=== PATIENT | male | born 1990 | race Caucasian/White ===

== ENCOUNTER 2021-04-05 12:55 | Emergency (ER) | payer OTHER ==
[2021-04-05 15:06] LABS: BASOPHIL 0.4 % (0-2); EOSINOPHIL 0.3 & (0-5); HCT 39.3 % (42.0-52.0); HGB 13.5 g/dl (13.2-18.0); LYMPHOCYTE 16.9 % (15-48); MCH 28.5 pg (25.0-31.0); MCHC 34.4 g/dL (32.0-36.0); MCV 82.9 fL (78.0-100.0); MONOCYTE 6.1 % (0-12); MPV 9.3 fL (6.0-9.5); NEUTROPHIL 76.2 % (41-80); PLT 256 K/uL (150-400); RBC 4.74 M/uL (4.70-6.00); RDW 11.5 % (11.5-14.0); WBC 6.74 K/uL (4.0-10.5)
[2021-04-05 15:27] LABS: ALBUMIN 3.7 g/dL (3.4-5.0); BILIRUBIN - TOTAL 0.4 mg/dL (0.2-1.0); CREATININE 0.87 mg/dL (0.67-1.17); GLOBULIN (CALCULATION) 2.6 g/dL; POTASSIUM 3.8 mmol/L (3.5-5.1); TOTAL PROTEIN 6.3 g/dL (6.4-8.2)
== END 2021-04-05 17:12 | disposition home or self-care (01) ==
LOC: FER 12:55
PROVIDERS: Physician Assistant
DX: R10.84 Generalized abdominal pain (principal); R11.2 Nausea with vomiting, unspecified; R19.7 Diarrhea, unspecified; F17.200 Nicotine dependence, unspecified, uncomplicated; Z98.890 Other specified postprocedural states; Z88.0 Allergy status to penicillin; Z79.899 Other long term (current) drug therapy; Z79.891 Long term (current) use of opiate analgesic
CPT/HCPCS: 36415; 80053; 83690; 85025; J2270; J2405; J7030; Q9967